=== PATIENT | male | born 1990 | race Caucasian/White ===

== ENCOUNTER 2018-03-22 14:36 | Emergency (ER) | payer MEDICAID ==
[~2018-03-22] VITALS: Ht 180.3 cm; Wt 88.5 kg
[2018-03-22 14:41] VITALS: Ht 180.3 cm; Wt 88.5 kg
[2018-03-22] MEDS ORDERED: TORADOL10 MG PO (16:36)
[2018-03-22] MEDS ORDERED: VIBRAMYCIN 100100 MG PO (16:36)
[2018-03-22 16:56] VITALS: BP 125/68
== END 2018-03-22 16:57 | disposition home or self-care (01) ==
LOC: D.ER 14:36
DX: S61.511A Laceration without foreign body of right wrist, initial encounter (principal); W26.8XXA Contact with other sharp object(s), not elsewhere classified, initial encounter; Y93.89 Activity, other specified; Y92.89 Other specified places as the place of occurrence of the external cause; F17.200 Nicotine dependence, unspecified, uncomplicated

== ENCOUNTER 2018-04-03 15:11 | Emergency (ER) | payer MEDICAID ==
[~2018-04-03] VITALS: Ht 180.3 cm; Wt 88.6 kg
[~2018-04-03 15:11] MED LIST: TORADOL10 MG PO; VIBRAMYCIN 100100 MG PO
[2018-04-03 15:21] VITALS: BP 122/73; Ht 180.3 cm; Wt 88.6 kg
== END 2018-04-03 15:30 | disposition left against medical advice (07) ==
LOC: D.ER 15:11
DX: S51.811A Laceration without foreign body of right forearm, initial encounter (principal); W26.8XXA Contact with other sharp object(s), not elsewhere classified, initial encounter; Y93.89 Activity, other specified; Y92.89 Other specified places as the place of occurrence of the external cause